=== PATIENT | female | born 1995 | race Caucasian/White ===

== ENCOUNTER 2016-11-24 02:27 | Emergency (ER) | payer BC ==
[~2016-11-24] VITALS: Ht 167.6 cm; Wt 103.2 kg
[2016-11-24 02:31] VITALS: TEMP 36.7; Ht 167.6 cm; Wt 103.2 kg
[2016-11-24] MEDS ORDERED: LORAZEPAM 2 MG/ML 1 ML VIAL IV STA (02:52)
[2016-11-24] MEDS ORDERED: SODIUM CHLORIDE 0.9% 1000ML 1,000 ML IV ONE (03:00)
[2016-11-24] MEDS ORDERED: NXM/40 PO (03:21)
[2016-11-24] MEDS ORDERED: ZONI100C39 PO (03:21)
[2016-11-24] MEDS ORDERED: VENL1CAP92 PO (03:21)
[2016-11-24] MEDS ORDERED: ONDA8TAB6 PO (03:21)
[2016-11-24 03:23] VITALS: O2SAT 100
[2016-11-24 03:30] LABS: BASO % 0.2 %; BASO ABS # 0.03 K/uL (0-0.2); COMPLETE YES; HEMATOCRIT 38.4 % (37-47); IG% 0.2 %; LYMPH % 29.7 %; LYMPH ABS # 3.59 K/uL (1.2-3.4); MEAN CORPUSCULAR HEMOGLOBIN 27.4 pg (25-34); MEAN CORPUSCULAR HGB CONC 32.3 g/dl (32-36); MEAN PLATELET VOLUME 10.5 fL (7.4-10.4); MONO % 4.5 %; NEUT % 63.4 %; PLATELET COUNT 332 K/uL (130-400); RED BLOOD COUNT 4.52 M/uL (4.2-5.4)
[2016-11-24 03:36] LABS: URINE APPEARANCE CLEAR (CLEAR); URINE BILIRUBIN NEG (NEG); URINE COLOR YELLOW; URINE NITRITE NEG (NEG); URINE SPECIFIC GRAVITY 1.007 (1.000-1.030); UROBILINOGEN NEG (NEG); ZZUR CULT IF INDIC CLEAN CATCH NO
[2016-11-24 03:40] LABS: MANUAL MICROSCOPIC REQUIRED? NO; REVIEW REQ? NO
[2016-11-24 03:46] LABS: ALT/SGPT 12 U/L (12-78); AST/SGOT 8 U/L (15-37); BLOOD UREA NITROGEN 9 mg/dl (7-18); BUN/CREATININE RATIO 11.5 (10-20); CALCIUM 8.5 mg/dl (8.5-10.1); CARBON DIOXIDE 23 mmol/L (21-32); CHLORIDE 113 mmol/L (98-107); CREATININE 0.75 mg/dl (0.60-1.20); GLUCOSE 127 mg/dl (70-99); POTASSIUM 3.2 mmol/L (3.5-5.1); SODIUM 147 mmol/L (136-145)
[2016-11-24 03:51] LABS: ALB/GLOB RATIO 1.1 (0.9-2); ALKALINE PHOSPHATASE 86 U/L (45-117)
[2016-11-24 03:55] LABS: BENZODIAZEPINE, URINE NEG (NEG); COCAINE,URINE NEG (NEG); PHENCYCLIDINE, URINE NEG (NEG)
[2016-11-24 05:43] VITALS: BP 123/64; PULSE 76; O2SAT 98
--- NOTE | 2016-11-25 00:44 | EMERGENCY ROOM VISIT NOTE ---
History First contact with patient: 02:43 Chief Complaint: NAUSEA Stated Complaint: NAUSEA,DIZZY,DISORIENTED,FEELING SOMETHING WRONG Nursing Triage Summary: Pt reports she drank a bottle of wine and smoked mariquana at 11pm. Pt now thinks she is having a reaction with her medications. Pt feels dizzy, disoriented and is vomiting. History of Present Illness The patient is a 21 year old female who presents to the Emergency Room with complaints of nausea, vomiting, and disorientation after drinking a bottle of wine and smoking marijuana about 3 hours ago. The patient is reportedly on Effexor, and she is concerned that she may be having an allergic reaction. The patient does not typically smoke marijuana. She has some palpitations but not distinct chest pain or abdominal pain. She denies chance of . She rates her overall discomfort a 6/10. She reports having 3 episodes of emesis. Review of Systems More than 10 systems were reviewed and otherwise negative with the exception of history of present illness. Past Medical/Surgical History History of anxiety Social History Smoking Status: Never Smoker Occupation Status: [employer] student Current/Historical Medications Scheduled Esomeprazole Magnesium (Nexium), 40 MG PO DAILY Venlafaxine Hcl (Effexor Xr), 37.5 MG PO DAILY Zonisamide (Zonegran), 200 MG PO DAILY Scheduled PRN Ondansetron Hcl (Zofran), 8 MG PO DIRECTED PRN for Nausea Allergies Coded Allergies: Sulfamethoxazole w/Trimethoprim (Verified Allergy, Mild, Rash, 11/24/16) Physical Exam Vital Signs Date Time Temp Pulse Resp B/P Pulse Ox O2 Delivery O2 Flow Rate FiO2 11/24/16 05:43 76 16 123/64 98 11/24/16 04:30 70 16 113/75 96 Room Air 11/24/16 03:43 107 11/24/16 03:23 100 Room Air 11/24/16 02:31 36.7 143 20 110/66 96 Room Air Pain Rating (0-10): 0 Physical Exam VITALS: Vitals are noted on the nurse's note and reviewed by myself. Vital signs with tachycardia GENERAL: Well-developed, well-nourished, anxious-appearing female who is cooperative HEAD: Normocephalic atraumatic. HEART: Tachycardic rate with regular rhythm. No murmur gallop or rub. LUNGS: Clear to auscultation bilaterally without wheezes, rales or rhonchi. No retractions or accessory muscle use. ABDOMEN: Positive normal bowel sounds x 4. Soft, nontender, without masses or organomegaly. No guarding or rebound tenderness. MUSCULOSKELETAL: No muscle atrophy, erythema, or edema noted. Full range of motion without joint tenderness in all extremities. NEURO: Patient was alert and oriented to person place and time. CN II through XII grossly intact. GCS 15. Medical Decision & Procedures Laboratory Results 11/24/16 03:17 Red Blood Count 4.52, Mean Corpuscular Volume 85.0, Mean Corpuscular Hemoglobin 27.4, Mean Corpuscular Hemoglobin Concent 32.3, Mean Platelet Volume 10.5, Neutrophils (%) (Auto) 63.4, Lymphocytes (%) (Auto) 29.7, Monocytes (%) (Auto) 4.5, Eosinophils (%) (Auto) 2.0, Basophils (%) (Auto) 0.2, Neutrophils # (Auto) 7.68, Lymphocytes # (Auto) 3.59, Monocytes # (Auto) 0.54, Eosinophils # (Auto) 0.24, Basophils # (Auto) 0.03 11/24/16 03:17 Test 11/24/16 03:10 11/24/16 03:17 Urine Color YELLOW Urine Appearance CLEAR (CLEAR) Urine pH 5.0 (4.5-7.5) Urine Specific [place] 1.007 (1.000-1.030) Urine Protein NEG (NEG) Urine Glucose (UA) NEG (NEG) Urine Ketones NEG (NEG) Urine Occult Blood NEG (NEG) Urine Nitrite NEG (NEG) Urine Bilirubin NEG (NEG) Urine Urobilinogen NEG (NEG) Urine Leukocyte Esterase NEG (NEG) Urine Test NEG (NEG) Urine Opiates Screen NEG (NEG) Urine Methadone, Qualitative NEG (NEG) Urine Barbiturates NEG (NEG) Urine Phencyclidine (PCP) Level NEG (NEG) Ur Amphetamine/Methamphetamine NEG (NEG) MDMA (Ecstasy) Screen NEG (NEG) Urine Benzodiazepines Screen NEG (NEG) Urine Cocaine Metabolite NEG (NEG) Urine Marijuana (THC) POS (NEG) White Blood Count 12.10 K/uL (4.8-10.8) Red Blood Count 4.52 M/uL (4.2-5.4) Hemoglobin 12.4 g/dL (12.0-16.0) Hematocrit 38.4 % (37-47) Mean Corpuscular Volume 85.0 fL (80-100) Mean Corpuscular Hemoglobin 27.4 pg (25-34) Mean Corpuscular Hemoglobin Concent 32.3 g/dl (32-36) Platelet Count 332 K/uL (130-400) Mean Platelet Volume 10.5 fL (7.4-10.4) Neutrophils (%) (Auto) 63.4 % Lymphocytes (%) (Auto) 29.7 % Monocytes (%) (Auto) 4.5 % Eosinophils (%) (Auto) 2.0 % Basophils (%) (Auto) 0.2 % Neutrophils # (Auto) 7.68 K/uL (1.4-6.5) Lymphocytes # (Auto) 3.59 K/uL (1.2-3.4) Monocytes # (Auto) 0.54 K/uL (0.11-0.59) Eosinophils # (Auto) 0.24 K/uL (0-0.5) Basophils # (Auto) 0.03 K/uL (0-0.2) RDW Standard Deviation 44.2 fL (36.4-46.3) RDW Coefficient of Variation 14.2 % (11.5-14.5) Immature Granulocyte % (Auto) 0.2 % Immature Granulocyte # (Auto) 0.02 K/uL (0.00-0.02) Anion Gap 11.0 mmol/L (3-11) Est Creatinine Clear Calc Drug Dose 142.7 ml/min Estimated GFR () 131.1 Estimated GFR (Non- 113.1 BUN/Creatinine Ratio 11.5 (10-20) Calcium Level 8.5 mg/dl (8.5-10.1) Total Bilirubin 0.1 mg/dl (0.2-1) Aspartate Amino Transf (AST/SGOT) 8 U/L (15-37) Alanine Aminotransferase (ALT/SGPT) 12 U/L (12-78) Alkaline Phosphatase 86 U/L (45-117) Troponin I < 0.015 ng/ml (0-0.045) Total Protein 7.7 gm/dl (6.4-8.2) Albumin 4.0 gm/dl (3.4-5.0) Globulin 3.7 gm/dl (2.5-4.0) Albumin/Globulin Ratio 1.1 (0.9-2) Ethyl Alcohol mg/dL 101.0 mg/dl (0-3) Medications Administered Medications (Trade) Dose Ordered Sig/Pennie Route Start Time Stop Time Status Last Admin Dose Admin Sodium Chloride (Nss 1000ml) 1,000 ml @ 999 mls/hr Q1H1M ONCE IV 11/24/16 03:00 11/24/16 04:00 DC 11/24/16 03:00 999 MLS/HR Lorazepam (Ativan Inj) 1 mg NOW STAT IV 11/24/16 02:52 11/24/16 02:53 DC 11/24/16 03:43 1 MG ECG Change: Sinus tachycardia @109 bpm Otherwise normal ECG No previous ECGs available Confirmed by SARAH MONTEMAYOR MD ([id number]) on 11/24/2016 12:07:12 PM ED Course Physical exam and history were performed. Nursing notes and EMR were reviewed. Patient appears to have palpitations, nausea, vomiting, and feeling strange after smoking marijuana and drinking alcohol this evening. EKG was performed and is as above. 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 IV access was established and labs were obtained. Patient was hydrated with normal saline and given 1 mg IV Ativan. The patient blood work is as above and was reviewed. She does have a very slightly elevated white blood cell count she does not have significant anemia or gross electrolyte imbalance. Her ethanol alcohol is just elevated at over 100. Urine was positive for marijuana but no signs of infection or other drugs of abuse. The patient was monitored here in the department for several hours, and she was able to sleep very comfortably after hydration and Ativan. I suspect her symptoms are related to the marijuana use, and not a medication reaction as the patient was concerned about. The patient is stable for discharge home and will be asked to follow with her primary care physician for further management. She was advised to the ER for any new, worsening, or concerning symptoms. The chart was completed utilizing [employer] Voice Recognition Software. Grammatical errors, random word insertions, pronoun errors, and incomplete sentences are an occasional consequence of this system due to software limitations, ambient noise, and hardware issues. Any formal questions or concerns about the content, text, or information contained within the body of this dictation should be directly addressed to the provider for clarification. . Medical Decision Differential diagnosis: Etiologies such as marijuana use, gastroenteritis, food borne illness, infections, appendicitis, diverticulitis, inflammatory bowel disease, obstruction, GI bleed, biliary pathology, as well as others were entertained. Impression Primary Impression: Marijuana use Additional Impressions: Alcohol intoxication Nausea and vomiting Departure Information Dispostion Home / Self-Care Condition GOOD Forms HOME CARE DOCUMENTATION FORM, IMPORTANT VISIT INFORMATION Patient Instructions My [facility] Additional Instructions You were seen and evaluated today on an emergency basis only. This is not a substitute for, or an effort to provide, complete comprehensive medical care. It is not possible to recognize and treat all injuries or illnesses in a single emergency department visit. For this reason it is recommended that you followup with your primary care physician this week for ongoing care and evaluation. Continue your at-home medications including Zofran. Treatment plan fluids and remain well hydrated. Avoid marijuana and alcohol as these can exacerbate your symptoms. You are welcome to return to the emergency department anytime with new, worsening, or concerning symptoms. Problem Qualifiers
== END 2016-11-24 05:43 | disposition home or self-care (01) ==
LOC: C.EDB 02:29
DX: F10.129 Alcohol abuse with intoxication, unspecified (principal); Y90.5 Blood alcohol level of 100-119 mg/100 ml; F12.10 Cannabis abuse, uncomplicated; R11.2 Nausea with vomiting, unspecified; Z79.899 Other long term (current) drug therapy; Z88.2 Allergy status to sulfonamides